=== PATIENT | female | born 1980 | race Caucasian/White ===

== ENCOUNTER 2019-05-09 13:34 | Outpatient (CLI) | payer OTHER | END 2019-05-09 13:38 | disposition home or self-care (01) | LOC: SONOGRAMA 13:34 | DX: N92.0 Excessive and frequent menstruation with regular cycle (principal); R10.2 Pelvic and perineal pain ==

== ENCOUNTER 2021-05-26 21:58 | Emergency (ER) | payer OTHER ==
[~2021-05-26] VITALS: Ht 144.8 cm; Wt 85.7 kg
[2021-05-26] MEDS ORDERED: NORFLEX100MG PO (23:53)
[2021-05-26] MEDS ORDERED: ACETAMINOPHEN650 M2 PO (23:53)
[2021-05-26] MEDS ORDERED: KETO10TA2 PO (23:53)
== END 2021-05-27 00:11 | disposition home or self-care (01) ==
LOC: ER 21:58
DX: M62.838 Other muscle spasm (principal); M79.621 Pain in right upper arm; M54.2 Cervicalgia